=== PATIENT | female | born 1985 | race Two or more races ===

== ENCOUNTER 2017-04-14 06:30 | Day surgery (SDC) | payer OTHER ==
[~2017-04-14 06:30] MED LIST: CEFAZOLIN 1 GM/D5W RTU 1 GM/50 ML RTUPB IV PRN
[2017-04-14] MEDS ORDERED: FENTANYL CITRATE INJ/PF 100 MCG/2 ML AMPUL ONE (07:09)
[2017-04-14] MEDS ORDERED: MIDAZOLAM 2 MG/2 ML INJ ONE (07:09)
[2017-04-14] MEDS ORDERED: PROPOFOL INJ 200 MG/20 ML VIAL IV ONE (07:10)
[2017-04-14] MEDS ORDERED: LIDOCAINE 2% INJ (20 MG/ML) 20 ML MDV ONE (07:12)
[2017-04-14] MEDS ORDERED: BUPIVACAINE HCL 0.5 % INJ/PF 30 ML SDV ONE (07:12)
[2017-04-14] MEDS ORDERED: BACITRACIN INJ 50,000 UNIT VIAL ONE (07:13)
[2017-04-14] MEDS ORDERED: POLYMYXIN B SULFATE INJ 500000 UNIT VIAL ONE (07:13)
[2017-04-14] MEDS ORDERED: NORMAL SALINE INJ/PF 0.9% 10 ML SDV ONE (07:13)
--- NOTE | 2017-04-14 09:15 | SURGICARE DISCHARGE SUMMARY E ---
[facility], [place] Discharge Summary NAME: MAXINE YOUSIF AGE: 31Y ADMITTED: 04/14/2017 DISCHARGED: 04/14/2017 SURGICAL PROCEDURE: Excision of soft tissue mass, plantar aspect, left foot. POSTOPERATIVE DIAGNOSIS: BENIGN NEOPLASM OF CONNECTIVE TISSUE, LEFT FOOT. SURGEON: FREDDIE ROONEY DPM VAULT KEEPER: Dayday Torres DPM PROCEDURE: Patient was admitted to [facility], with chief complaint of a painful lump underneath her left foot. She stated that it had become larger and it was very difficult to walk on it. An ultrasound was performed and it was negative for a ganglionic cyst, although it did show a well-encapsulated mass. The patient underwent the above surgical procedure without any complications and was transferred to the recovery room. DISPOSITION: She was discharged with an ice pack, a surgical shoe, postoperative instructions, and to remain nonweightbearing on that surgical foot, and postoperative prescriptions for Percocet 5/325 mg, #50, and Phenergan 25 mg #25. FOLLOWUP: She was given a followup appointment in the doctor's office on April 20, and the patient was discharged from [facility], [place]. DICTATING PHYSICIAN: FREDDIE ROONEY D.P.M. [id number] PHY#: [id number] ID: [id number] JOB#: [id number] ACCT: [id number] cc:FREDDIE ROONEY DPM >
--- NOTE | 2017-04-14 09:48 | SURGICARE OPERATIVE REPORT E ---
[facility] Oper[facility] NAME: MAXINE YOUSIF AGE: 31Y DATE OF SURGERY: 04/14/2017 ROOM: PREOPERATIVE DIAGNOSIS: Cyst, plantar aspect left foot. POSTOPERATIVE DIAGNOSIS: Benign neoplasm of connective tissue, left foot. SURGICAL PROCEDURE: Excision of mass left foot. SURGEON: FREDDIE ROONEY DPM HOUSE CALLS NURSE PRACTITIONER: REUBEN PABLO DPM PROCEDURE: Following induction of IV regional local anesthesia, the left foot and leg were prepped and draped in the usual manner. A pneumatic tourniquet was placed around the left ankle and inflated to 250 mmHg after exsanguination of the limb via Esmarch bandage. The following surgical procedure was then performed: Excision of soft tissue mass plantar aspect left foot. Attention was directed to the plantar aspect of the first metatarsophalangeal joint where an approximately 3 cm transverse incision was made. The incision was deep and via sharp dissection. All bleeders were clamped and bovied as necessary for hemostasis. The mass was totally encapsulated and it was freed from its soft tissue attachments via combination of sharp and blunt dissection. The mass was removed en toto from the wound. It measured 2.4 cm x 1.5 cm x 1.3 cm and it was sent on to pathology. The incision was then flushed with copious amounts of an antibacterial saline solution. The subcutaneous tissue was coapted and maintained utilizing simple interrupted sutures of 4-0 Vicryl and the skin was coapted and maintained utilizing horizontal mattress sutures of 5-0 nylon. A dry sterile dressing was then applied consisting of Dao silk, 4 x 4s, Conform, Kerlix, and Coban. The pneumatic tourniquet was released. It was noted that all digits were warm and viable, and the patient was transferred to the recovery room. DICTATING PHYSICIAN: FREDDIE ROONEY D.P.M. [id number] PHY#: [id number] ID: [id number] JOB#: [id number] ACCT: [id number] cc:FREDDIE ROONEY DPM >
== END 2017-04-14 09:35 | disposition home or self-care (01) ==
LOC: SC 06:30
PROVIDERS: ATTEND Podiatrist Foot Surgery
PROC: 0JBR0ZZ Excision of Left Foot Subcutaneous Tissue and Fascia, Open Approach (ICD-10-PCS; principal; 2017-04-14 07:30)
DX: D21.22 Benign neoplasm of connective and other soft tissue of left lower limb, including hip (principal)
CPT/HCPCS: 88305 ×2; 28039; J2250; J3490 ×4; J0690; J3010; J2704; 1470